=== PATIENT | female | born 1980 | race Caucasian/White ===

== ENCOUNTER 2019-06-12 09:13 | Outpatient (CLI) | payer BC, MEDICAID ==
[~2019-06-12] VITALS: Ht 165 cm; Wt 91.3 kg
[2019-06-12] MEDS ORDERED: PREN1TAB79 PO (10:29)
== END 2019-06-12 10:45 ==
LOC: PREOP 09:13
PROVIDERS: ATTEND Obstetrics & Gynecology
DX: Z01.818 Encounter for other preprocedural examination (principal)

== ENCOUNTER 2019-06-19 06:42 | Inpatient (IN) | payer BC, MEDICAID ==
[2019-06-19] VITALS (11 sets, daily range): BP systolic 94–129; BP diastolic 51–97
[~2019-06-19] VITALS: Ht 165.1 cm; Wt 92.5 kg
[~2019-06-19 06:42] MED LIST: CITRIC ACID/SOB CIT (BICITRA) 30 ML UDC ONE; CLINDAMYCIN 900 MG/50 ML IVPB 50 ML IV ONE; FAMOTIDINE 20MG/2ML IV (PEPCID) ONE; METOCLOPRAMIDE INJ 10 MG/2 ML (REGLAN) ONE; PREN1TAB79 PO
--- OUTSIDE RECORDS SUMMARY | 2019-06-19 06:47 | XMS REPORT ---
Author Author [employer] [facility] [employer] Address [address] [address] Care Team Providers Care Admissions Specialist Name Role Phone IZABELA SUDHAKAR Unavailable Unavailable CUBA MALIN Unavailable Unavailable SUDHAKAR GURROLA Unavailable Unavailable ELENA ESTRADA MD Unavailable Unavailable Uvaldo Franks Unavailable Unavailable Unavailable Unavailable DO Aroldo SHELTON PCP Allergies The data below is from unstructured sources Substance Reaction Event Type N.K.D.A. Info Not Available Non Drug Allergy Medications Medication Ingredient Drug Dose Dates Status Sig Sig Care Class(es) (Normalized) (Original) Provid er no no Active no Vit no information Vit information information W-Ca,Fe,Fa( na me (1 source.) W-Ca,Fe,Fa( Active 1 (no <1 Mg) ORAL Daily phone) Problems Problem Normalized Date of Normalized Normalized Provider Fac ility Classification Problem(s) Problem Problem Problem Sta tus Onset/Resoluti Duration on Nonspecific Chest pain, Episodic Active BELLA BARTHOLOMEW Via chest pain (1 unspecified MD Zhang source.) [facility] ([address]686) Other lower Dyspnea, Episodic Active BELLA BARTHOLOMEW Vi a respiratory unspecified MD Zhang disease (1 Hospital - source.) [place] ([address]) Residual H/O: Episodic Active DO GRACE SHELTON Asce nsion Via codes; section [address] [facility] (1 source.) ([address]23) Procedures The data below is from unstructured sources Procedure Coding System Code Date Office Visit, Est Pt., Level 3 CPT-4 54030 September 17, 2015 Procedure Coding System Code Date Office Visit, Est Pt., Level 3 CPT-4 67916 Jan 09, 2015 Procedure Coding System Code Date Office Visit, New Pt., Level 4 CPT-4 82904 Nov 07, 2014 No procedure information available. Immunizations The data below is from unstructured sourcesNo Immunization Information Available Results Test Name Value Interpretation Reference Range Date Time Fa cility (Normalized) (Normalized) (Medline Reference) No panel information on 2019-05-31 S. agalactiae SEE NOTE (no code) [facility] Ql (Unsp spec) [facility] (50996) No panel information on 2019-04-01 Basophils (Bld) 0.027 10*3/uL (N) 0 - 0.3 10*3/uL [facility] [#/Vol] [facility] (03007) Basophils/100 0.3 % (N) 0.5 - 1 % [facility] He alth WBC (Bld) [facility] (83057) Eosinophils 0.249 10*3/uL (N) 0.05 - 0.5 [facility] alth (Bld) [#/Vol] 10*3/uL [facility] (34121) Eosinophils/100 2.8 % (N) 1 - 4 % [facility] WBC (Bld) [facility] (03551) Erythrocyte 12.8 % (N) 11.6 - 14.6 % [facility] ealth distribution [facility] width (RBC) [facility] [Ratio] (09090) Glucose 1 Hr 105 (N) [facility] post meal [facility] [Mass/Vol] [facility] (88023) Hematocrit (Bld) 32.0 % (L) 36.1 - 50.3 % [facility] [Volume [facility] fraction] [facility] (08358) Hemoglobin (Bld) 10.5 g/dL (L) 12.1 - 17.2 g/dL [facility] [Mass/Vol] [facility] (00962) Lymphocytes 1.931 10*3/uL (N) 0.9 - 2.9 [facility] alth (Bld) [#/Vol] 10*3/uL [facility] (08935) Lymphocytes/100 21.7 % (N) 20 - 40 % [facility] WBC (Bld) [facility] (52573) MCH (RBC) 30.1 pg (N) 27 - 31 pg [facility] th [Entitic mass] [facility] (92583) MCHC (RBC) 32.8 g/dL (N) 32 - 36 g/dL [facility] He alth [Mass/Vol] [facility] (82832) MCV (RBC) 91.7 fL (N) 80 - 100 fL [facility] [Entitic vol] [facility] (41139) Monocytes (Bld) 0.481 10*3/uL (N) 0.3 - 0.9 [facility] [#/Vol] 10*3/uL [facility] (26505) Monocytes/100 5.4 % (N) 2 - 8 % [facility] alth WBC (Bld) [facility] (11195) Neutrophils 6.212 10*3/uL (N) 1.7 - 7 10*3/uL [facility] (Bld) [#/Vol] [facility] (66746) Neutrophils/100 69.8 % (N) 40 - 60 % [facility] WBC (Bld) [facility] (64210) Platelet mean 10.4 fL (N) 7.2 - 11.7 fL [facility] Health volume (Bld) [facility] [Entitic vol] [facility] (62791) Platelets (Bld) 263 10*3/uL (N) 150 - 450 [facility] [#/Vol] 10*3/uL [facility] (44728) RBC (Bld) 3.49 10*6/uL (L) 4.2 - 6.1 [facility] lth [#/Vol] 10*6/uL [facility] (81733) WBC (Bld) 8.9 10*3/uL (N) 3.5 - 10.5 [facility] th [#/Vol] 10*3/uL [facility] (91699) No panel information on 2018-12-17 ABO group Nom O (no code) [facility] Healt h (Bld) [facility] (09014) ABO group Nom O (no code) [facility] Healt h (Bld) [facility] (90690) Basophils (Bld) 0.041 10*3/uL (N) 0 - 0.3 10*3/uL [facility] [#/Vol] [facility] (90329) Basophils/100 0.5 % (N) 0.5 - 1 % [facility] WBC (Bld) [facility] (76353) Eosinophils 0.267 10*3/uL (N) 0.05 - 0.5 [facility] (Bld) [#/Vol] 10*3/uL [facility] (30304) Eosinophils/100 3.3 % (N) 1 - 4 % [facility] WBC (Bld) [facility] (41476) Erythrocyte 18.0 % (H) 11.6 - 14.6 % [facility] H ealth [facility] (RBC) [facility] [Ratio] (53001) HBV surface Ag NON-REACTIVE (N) [facility] IA Ql [facility] (18510) Hematocrit (Bld) 33.7 % (L) 36.1 - 50.3 % [facility] [Volume [facility] (53448) Hemoglobin (Bld) 10.8 g/dL (L) 12.1 - 17.2 g/dL [facility] [Mass/Vol] [facility] (45291) HIV 1+2 Ab+HIV1 NON-REACTIVE (N) [facility] p24 Ag IA Ql [facility] (38995) Lymphocytes 1.944 10*3/uL (N) 0.9 - 2.9 [facility] He alth (Bld) [#/Vol] 10*3/uL [facility] (58071) Lymphocytes/100 24.0 % (N) 20 - 40 % [facility] WBC (Bld) [facility] (47253) MCH (RBC) 27.1 pg (N) 27 - 31 pg [facility] th [Entitic mass] [facility] (15901) MCHC (RBC) 32.0 g/dL (N) 32 - 36 g/dL [facility] He alth [Mass/Vol] [facility] (90445) MCV (RBC) 84.7 fL (N) 80 - 100 fL [facility] Hea lth [Entitic vol] [facility] (90985) Monocytes (Bld) 0.348 10*3/uL (N) 0.3 - 0.9 [facility] [#/Vol] 10*3/uL [facility] (89122) Monocytes/100 4.3 % (N) 2 - 8 % [facility] WBC (Bld) [facility] (85484) Neutrophils 5.5 10*3/uL (N) 1.7 - 7 10*3/uL [facility] (Bld) [#/Vol] [facility] (33098) Neutrophils/100 67.9 % (N) 40 - 60 % [facility] WBC (Bld) [facility] (45836) Platelet mean 9.9 fL (N) 7.2 - 11.7 fL [facility] volume (Bld) [facility] [Entitic vol] [facility] (61227) Platelets (Bld) 348 10*3/uL (N) 150 - 450 [facility] [#/Vol] 10*3/uL [facility] (44381) RBC (Bld) 3.98 10*6/uL (N) 4.2 - 6.1 [facility] lth [#/Vol] 10*6/uL [facility] (78484) Reagin Ab RPR Ql NON-REACTIVE (N) [facility] (S) [facility] (12626) Reagin Ab RPR Ql no information (no code) [facility] Hea lth (S) [facility] (25266) Rh Nom (Bld) no information (no code) [facility] (84794) Rh Nom (Bld) no information (no code) [facility] (64762) Rubella virus 2.69 (N) [facility] IgG Qn (S) [facility] (66934) WBC (Bld) 8.1 10*3/uL (N) 3.5 - 10.5 [facility] [#/Vol] 10*3/uL [facility] (89636) No panel information on 2018-11-23 C. trachomatis NOT DETECTED (N) [facility] rRNA WILLAM+probe [facility] (Unsp spec) [facility] (01328) C. trachomatis NOT DETECTED (N) [facility] rRNA WILLAM+probe [facility] (Unsp spec) [facility] (83586) Clinical no information (N) [facility] information [facility] (48552) COMMENT no information (no code) [facility] (39263) COMMENT no information (no code) [facility] (81733) COMMENT no information (no code) [facility] (86109) Production Team Manager Cyto no information (N) [facility] stain Nom [facility] (Cvx/Vag) [ID] [facility] (13458) Date of previous no information (N) [facility] biopsy [facility] (46718) Date of previous no information (N) [facility] PAP smear [facility] (50428) Last menstrual no information (N) [facility] period start [facility] (04553) Microscopic no information (N) [facility] observation Cyto [facility] Nom (Cvx) [facility] (70259) N. gonorrhoeae NOT DETECTED (N) [facility] rRNA WILLAM+probe [facility] (Unsp spec) [facility] (83042) N. gonorrhoeae NOT DETECTED (N) [facility] rRNA WILLAM+probe [facility] (Unsp spec) [facility] (38178) Specimen source Cervix (N) [facility] Cyto stain Nom [facility] (Cvx/Vag) [facility] (99310) Statement of no information (N) [facility] adequacy Cyto [facility] (Cvx/Vag) [facility] [Interp] (77812) No panel information on 2018-11-14 HCG.beta subunit 268780 m[IU]/mL (N) 5 - 25 [facility]IU[facility] (47841) HCG.beta subunit 397122 m[IU]/mL (N) 5 - 25 m[IU]/mL [facility] (37552) No panel information on 2018-08-13 HCG.beta subunit 3 m[IU]/mL (N) 5 - 25 m[IU]/mL [facility] (83215) No panel information on 2018-08-10 HCG.beta subunit 14 m[IU]/mL (N) 5 - 25 m[IU]/mL [facility] (17473) Vital Signs The data below is from unstructured sources Vital Reading Result Col lection Date/Time Interventions No Information Plan of Treatment No Information Goals Patient Goal Desired Goal no information no information Social History Normalized Code Original Code Date Value Tobacco smoking status Tobacco smoking status no information Ex-smoker (finding) [place]IS no information no information 2019 Denies Use no information no information 2019 No no information no information 2019 Former Smoker Sex Assigned At Sex Assigned At no information F emale Functional Status The data below is from unstructured sourcesNo Functional Status information available Mental Status The data below is from unstructured sourcesNo Mental Status Information Available Encounters Encounter Normalized Encounter Encounter Diagnosis Care Provi michael Organization Date Type 2019 Patient encounter no information (no phone) Yandel escobedo [facility] (no phone) 2019 05-31-2019 Patient encounter no information (no phone) [facility] (no phone) 04-01-2019 Patient encounter no information no name (no phone) no organization name procedure (no phone) 02-11-2019 Patient encounter no information no name (no phone) no organization name procedure (no phone) 01-14-2019 Patient encounter no information no name (no phone) no organization name procedure (no phone) 12-17-2018 Patient encounter no information no name (no phone) no organization name procedure (no phone) 12-17-2018 Patient encounter no information no name (no phone) no organization name procedure (no phone) 11-23-2018 Patient encounter no information no name (no phone) no organization name procedure (no phone) 11-23-2018 Patient encounter no information no name (no phone) no organization name procedure (no phone) 11-14-2018 Patient encounter no information no name (no phone) no organization name procedure (no phone) 11-14-2018 Patient encounter no information no name (no phone) no organization name procedure (no phone) 11-09-2018 Patient encounter no information no name (no phone) no organization name procedure (no phone) 08-13-2018 Patient encounter no information no name (no phone) no organization name procedure (no phone) 08-10-2018 Patient encounter no information no name (no phone) no organization name procedure (no phone) 08-10-2018 Patient encounter no information no name (no phone) no organization name procedure (no phone) 05-18-2015 Patient encounter no information no name (no phone) no organization name - procedure (no phone) 08-15-2015 Medical Equipment The data below is from unstructured sourcesNo Medical Equipment Information available Payers Normalized Payer Value [facility] Shield no information ([id number]) Medicaid no information ([id number]) Evaluation note Note Type Note Facility Evaluation No Assessments Information Available A scension note Via [facility] (43122) Summary Purpose eClinicalWorks SubmissioneClinicalWorks SubmissioneClinicalWorks SubmissioneClinicalWorks SubmissioneClinicalWorks SubmissioneClinicalWorks SubmissioneClinicalWorks SubmissioneClinicalWorks SubmissioneClinicalWorks SubmissioneClinicalWorks SubmissioneClinicalWorks Submission Advance Directives Advance Directive Response Recorded Date/Time Advance Directives No Ap 2019 10:38am Health Care Power of Slot Machine Key Person No 2019 10:38am Resuscitation Status Full Code 2019 10:38am Additional Source Comments This clinical document has been generated using [employer] software that has been certified by the Office of the National Coordinator for Health Information Technology (ONC 15.99.04.3023.Diam.31.00.0.826927) and the National Committee for Mental Health Director (NCQA, as an eMeasure certified technology). FOR RECORDS PERTAINING TO PATIENTS WHO ARE OR HAVE BEEN ENROLLED IN A CHEMICAL D EPENDENCY/SUBSTANCE ABUSE PROGRAM, SOME INFORMATION MAY BE OMITTED. This clinica l summary was aggregated from multiple sources. Caution should be exercised in using it in the provision of clinical care. This summary normalizes information from multiple sources, and as a consequence, information in this document may ma terially change the coding, format and clinical context of patient data. In praveen tion, data may be omitted in some cases. CLINICAL DECISIONS SHOULD BE BASED ON T HE PRIMARY CLINICAL RECORDS. [employer] [facility]. provides no warranty or guara ntee of the accuracy or completeness of information in this document.The followi ng information is based on time limited clinical information
--- OUTSIDE RECORDS SUMMARY | 2019-06-19 06:47 | XMS REPORT ---
Author Author Judy GURROLA [facility] [employer] Address Unknown Phone Unavailable Care Team Providers Care Pre Billing Specialist Name Role Phone SUDHAKAR GURROLA CP Unavailable Allergies No Known Allergies Problems Problem Type Condition Code Onset Dates Condition Statu s Problem Tooth caries 521.00 Active Problem Edema 782.3 Active Problem Tremor, unspecified R25.1 Active Assessment Palpitations R00.2 Active Problem Tension headache, chronic 339.12 Ac tive Problem Arm pain 729.5 Active Medications No Known Medications Procedures Procedure Coding System Code Date ECG MONITOR/RECORD, 24 HRS CPT-4 28621 Jan 272014 Results No Known Results Summary Purpose eClinicalWorks Submission
--- OUTSIDE RECORDS SUMMARY | 2019-06-19 06:47 | XMS REPORT ---
Author Author Judy MALIN Organization [employer] Address Unknown Phone Unavailable Care Team Providers Care Printed Circuit Board Panels Plater Name Role Phone CUBA MALIN CP Unavailable Allergies No Known Allergies Problems Problem Type Condition Code Onset Dates Condition Statu s Problem Tooth caries 521.00 Active Problem Edema 782.3 Active Problem Tremor, unspecified R25.1 Active Problem Tension headache, chronic 339.12 Ac tive Problem Arm pain 729.5 Active Medications Medication Code System Code Instructions Start Date End Date Status Dosage Klor-Con M20 [facility] [address]-26 20 MEQ Orally Twice a day Dec 282014Jan 17, 2015 1 tablet Results No Known Results Summary Purpose eClinicalWorks Submission
--- OUTSIDE RECORDS SUMMARY | 2019-06-19 06:47 | XMS REPORT ---
Author Author Judy GURROLA [facility] eClinicalWorks Address Unknown Phone Unavailable Care Team Providers Care Lock Tender Chief Operator Name Role Phone SUDHAKAR GURROLA CP Unavailable Allergies No Known Allergies Problems Problem Type Condition Code Onset Dates Condition Statu s Problem Tooth caries 521.00 Active Problem Edema 782.3 Active Problem Tremor, unspecified R25.1 Active Assessment Palpitations R00.2 Active Problem Tension headache, chronic 339.12 Ac tive Problem Arm pain 729.5 Active Medications No Known Medications Results No Known Results Summary Purpose eClinicalWorks Submission
--- OUTSIDE RECORDS SUMMARY | 2019-06-19 06:47 | XMS REPORT ---
Author Author Judy GURROLA [facility] eClinicalWorks Address Unknown Phone Unavailable Care Team Providers Care Photographic Editor Name Role Phone SUDHAKAR GURROLA CP Unavailable Allergies No Known Allergies Problems Problem Type Condition Code Onset Dates Condition Statu s Problem Tooth caries 521.00 Active Problem Edema 782.3 Active Problem Tremor, unspecified R25.1 Active Assessment Anxiety F41.9 Active Problem Tension headache, chronic 339.12 Ac tive Problem Arm pain 729.5 Active Medications No Known Medications Results No Known Results Summary Purpose eClinicalWorks Submission
--- OUTSIDE RECORDS SUMMARY | 2019-06-19 06:47 | XMS REPORT ---
Author Author Judy GURROLA [facility] eClinicalWorks Address Unknown Phone Unavailable Care Team Providers Care Strawhat Inspector And Packer Name Role Phone SUDHAKAR GURROLA Unavailable Allergies, Adverse Reactions, Alerts Substance Reaction Event Type Penicillin G Potassium Info Not Available Drug Allergy Levaquin anaphylaxis Drug Allergy Cephalexin rash Drug Allergy Problems Problem Type Condition Code Onset Dates Condition Statu s Assessment Arm pain 729.5 Active Problem Tooth caries 521.00 Active Problem Edema 782.3 Active Problem Tremor, unspecified R25.1 Active Assessment Tremor, unspecified R25.1 Active Assessment Edema 782.3 Active Problem Tension headache, chronic 339.12 Ac tive Problem Arm pain 729.5 Active Medications Medication Code System Code Instructions Start Date End Date Status Dosage Amitriptyline HCl [facility] [address]-61 25 MG Orally bedtime Nov 07 15 1 tablet Hydrochlorothiazide [facility] [address]-91 25 MG Orally Once a day Oct 282014 1 tablet Atenolol [facility] [address]-21 25 MG Orally Once a day Jan 09, 2015 1 tablet Procedures Procedure Coding System Code Date Office Visit, Est Pt., Level 3 CPT-4 95626 N 2014 Vital Signs Date/Time: Jan 09, 2015 Temperature 97.8 F Weight 166 lbs Height 5.5 in BMI 3,857.79 Index Blood Pressure Diastolic 82 mmHg Blood Pressure Systolic 126 mmHg Cardiac Monitoring Heart Rate 88 bpm Results No Known Results Summary Purpose eClinicalWorks Submission
--- OUTSIDE RECORDS SUMMARY | 2019-06-19 06:47 | XMS REPORT ---
Author Judy Washington Organization eClinicalWorks Address Unknown Phone Unavailable Care Team Providers Care Extractor Operator Helper Name Role Phone SUDHAKAR GURROLA CP Unavailable Allergies No Known Allergies Problems Problem Type Condition Code Onset Dates Condition Statu s Problem Tremor, unspecified R25.1 Active Problem Peptic ulcer K27.9 Active Problem Migraine without aura and with status mi grainosus, not intractable G43.001 Active Problem Gastritis and duodenitis K29.90 Act jerald Problem Tension headache G44.209 Active Problem Edema, unspecified type R60.9 Acti ve Problem Dehydration E86.0 Active Problem Acute cystitis without hematuria N30.00 Active Medications Medication Code System Code Instructions Start Date End Date Status Dosage Omeprazole [facility] [address]-83 40 mg Orally Once a day Nov 06, 2015 1 capsule Results No Known Results Summary Purpose eClinicalWorks Submission
--- OUTSIDE RECORDS SUMMARY | 2019-06-19 06:48 | XMS REPORT ---
Author Author Judy GURROLA [facility] eClinicalWorks Address Unknown Phone Unavailable Care Team Providers Care Optician Apprentice Dispensing Name Role Phone SUDHAKAR GURROLA CP Unavailable Allergies No Known Allergies Problems Problem Type Condition Code Onset Dates Condition Statu s Problem Acute cystitis without hematuria N30.00 Active Problem Edema due to kwashiorkor E40 Act jerald Problem Dehydration E86.0 Active Problem Tremor, unspecified R25.1 Active Assessment Weakness R53.1 Active Problem Tension headache G44.209 Active Problem Edema, unspecified type R60.9 Acti ve Medications No Known Medications Procedures Procedure Coding System Code Date Office Visit, Est Pt., Level 3 CPT-4 98266 [facility] 2015 Results No Known Results Summary Purpose eClinicalWorks Submission
--- OUTSIDE RECORDS SUMMARY | 2019-06-19 06:48 | XMS REPORT ---
Author Author Judy GURROLA [facility], [place] eClinicalWorks Address Unknown Phone Unavailable Care Team Providers Care Sheep Herder Name Role Phone SUDHAKAR GURROLA CP Unavailable Allergies, Adverse Reactions, Alerts Substance Reaction Event Type N.K.D.A. Info Not Available Non Drug Allergy Problems Problem Type Condition ICD-9 Code Onset Dates Condition Statu s Problem Tension headache, chronic 339.12 Ac tive Problem Arm pain 729.5 Active Problem Edema 782.3 Active Assessment Arm pain 729.5 Active Assessment Edema 782.3 Active Assessment Tension headache, chronic 339.12 Ac tive Medications Medication Code System Code Instructions Start Date End Date Status Dosage Amitriptyline HCl [facility] [address]-59 25 MG Orally bedtime Nov 07 15 1 tablet Gabapentin [facility] [address]-20 300 MG Orally Three times a day Oct 1 capsule Hydrochlorothiazide [facility] [address]-51 25 MG Orally Once a day Oct 282014 1 tablet Procedures Procedure Coding System Code Date Office Visit, New Pt., Level 4 CPT-4 34289 S ept 2014 Vital Signs Date/Time: Nov 07, 2014 Temperature 98.4 F Weight 166 lbs Height 5.5 in BMI 3,857.79 Index Blood Pressure Diastolic 72 mmHg Blood Pressure Systolic 138 mmHg Cardiac Monitoring Heart Rate 78 bpm Results No Known Results Summary Purpose eClinicalWorks Submission
--- OUTSIDE RECORDS SUMMARY | 2019-06-19 06:48 | XMS REPORT ---
Author Author Judy GURROLA [facility] eClinicalWorks Address Unknown Phone Unavailable Care Team Providers Care Event Crew Technician Name Role Phone SUDHAKAR GURROLA CP Unavailable Allergies No Known Allergies Problems Problem Type Condition Code Onset Dates Condition Statu s Problem Tooth caries 521.00 Active Problem Edema 782.3 Active Problem Tremor, unspecified R25.1 Active Assessment Hypokalemia E87.6 Active Problem Tension headache, chronic 339.12 Ac tive Problem Arm pain 729.5 Active Medications No Known Medications Results No Known Results Summary Purpose eClinicalWorks Submission
--- OUTSIDE RECORDS SUMMARY | 2019-06-19 06:48 | XMS REPORT | Continuity of Care Document ---
Author Organization Unknown Address Unknown Phone Unavailable Allergies Active Description Code Type Severity Reaction Onset Reported/Identified Relationship to Patient Clinical Status Yes cephalexin [id number] Drug Allerg y Mild HIVES/ITCHING 2019 Yes levofloxacin [id number] Drug Allergy Mild HIVES/ITCHING 2019 Yes Penicillins [id number] Drug Aller gy Mild HIVES/ITCHING 2019 Medications There is no data. Problems Date Dx Coded Attending Type Code Diagnosis Diagnosed By 05/21/2015 ELENA ESTRADA MD Ot R00. 2 05/21/2015 ELENA ESTRADA MD Ot R06. 00 05/21/2015 ELENA ESTRADA MD Ot R07. 9 05/21/2015 ELENA ESTRADA MD Ot R60. 9 06/05/2015 ELENA ESTRADA MD Ot R00. 2 06/05/2015 ELENA ESTRADA MD Ot R06. 00 06/05/2015 ELENA ESTRADA MD Ot R07. 9 06/05/2015 ELENA ESTRADA MD Ot R60. 9 06/17/2015 ELENA ESTRADA MD Ot R00. 2 PALPITATIONS 06/17/2015 ELENA ESTRADA MD Ot R06. 00 DYSPNEA, UNSPECIFIED 06/17/2015 ELENA ESTRADA MD Ot R07. 9 CHEST PAIN, UNSPECIFIED 06/17/2015 ELENA ESTRADA MD Ot R60. 9 EDEMA, UNSPECIFIED 08/16/2015 ELENA ESTRADA MD Ot R00. 2 PALPITATIONS 08/16/2015 ELENA ESTRADA MD Ot R06. 00 DYSPNEA, UNSPECIFIED 08/16/2015 ELENA ESTRADA MD Ot R07. 9 CHEST PAIN, UNSPECIFIED 08/16/2015 ELENA ESTRADA MD Ot R60. 9 EDEMA, UNSPECIFIED 01/05/2016 TEZ ABZZI DO Ot A04. 8 OTHER SPECIFIED BACTERIAL INTESTINAL INF 01/05/2016 TEZ BAZZI DO Ot R11. 0 NAUSEA 01/05/2016 TEZ BAZZI DO Ot Z01.818 ENCOUNTER FOR OTHER PREPROCEDURAL EXAMIN 2019 Ot R00.2 PALP ITATIONS 2019 Ot R06.00 DYS PNEA, UNSPECIFIED 2019 Ot R07.9 CHES T PAIN, UNSPECIFIED 2019 Ot R60.9 KAN A, UNSPECIFIED 06/13/2019 THAO JASSO DO Ot Z01.8 18 ENCOUNTER FOR OTHER PREPROCEDURAL EXAMIN Procedures There is no data. Results Test Result Range HCG, QUANTITATIVE - 08/10/18 16:33 HCG, TOTAL, QN 14 mIU/mL NRG HCG, QUANTITATIVE - 08/13/18 17:12 HCG, TOTAL, QN 3 mIU/mL NRG HCG, QUANTITATIVE - 11/14/18 09:44 HCG, TOTAL, QN 071828 mIU/mL NRG GC/CHLAMYDIA (SWAB OR URINE)-RAPID - 11:32 CHLAMYDIA TRACHOMATIS RNA, TMA NOT DETECTED NOT DETECTED NEISSERIA GONORRHOEAE RNA, TMA NOT DETECTED NOT DETECTED COMMENT NRG SUREPATH PAP RFX HPV mRNA E6/E7 - 11:32 CLINICAL INFORMATION: NRG LMP: NRG PREV. PAP: NRG PREV. BX: NRG SOURCE: Cervix NRG STATEMENT OF ADEQUACY: NRG INTERPRETATION/RESULT: NRG SHOE POLISHER: NRG COMMENT NRG HEP B SURFACE ANTIGEN - 12/17/18 09:38 HEPATITIS B SURFACE ANTIGEN NON-REACTIVE NON-REACTIVE RUBELLA IMMUNE STATUS - 12/17/18 09:38 RUBELLA ANTIBODY (IGG) 2.69 index NRG GLUCOSE JOE 1 HOUR - 04/01/19 11:06 GLUCOSE, POSTPRANDIAL/ 1 HOUR 105 mg/dL See Note: CBC - 04/01/19 11:06 WHITE BLOOD CELL COUNT 8.9 Thousand/uL 3 .8-10.8 RED BLOOD CELL COUNT 3.49 Million/uL 3.8 0-5.10 HEMOGLOBIN 10.5 g/dL 11.7-15.5 HEMATOCRIT 32.0 % 35.0-45.0 MCV 91.7 fL 80.0-100.0 MCH 30.1 pg 27.0-33.0 MCHC 32.8 g/dL 32.0-36.0 RDW 12.8 % 11.0-15.0 PLATELET COUNT 263 Thousand/uL 140-400 MPV 10.4 fL 7.5-12.5 ABSOLUTE NEUTROPHILS 6212 cells/uL 1500- 7800 ABSOLUTE LYMPHOCYTES 1931 cells/uL 850-3 900 ABSOLUTE MONOCYTES 481 cells/uL 200-950 ABSOLUTE EOSINOPHILS 249 cells/uL 15-500 ABSOLUTE BASOPHILS 27 cells/uL 0-200 NEUTROPHILS 69.8 % NRG LYMPHOCYTES 21.7 % NRG MONOCYTES 5.4 % NRG EOSINOPHILS 2.8 % NRG BASOPHILS 0.3 % NRG CULTURE, GROUP B STREP (VAGINAL) - 05/30 12:17 STREPTOCOCCUS, GROUP B CULTURE SEE NOTE NRG Encounters ACCT No. Visit Date/Time Discharge Status Pt. Type Provider Facility Loc./Unit Complaint [id number] 04/01/2019 09:30:00 04/01/2019 23:59:5 9 CLS Outpatient CHUCKIE GARNETT [facility] [id number] 05/31/2019 10:00:00 Document Registration [id number] 04/01/2019 09:30:00 Document Registration [id number] 12/17/2018 09:15:00 Document Registration [id number] 11/23/2018 11:32:00 Document Registration [id number] 11/23/2018 10:45:00 Document Registration [id number] 11/14/2018 09:30:00 Document Registration [id number] 08/13/2018 17:00:00 Document Registration [id number] 08/10/2018 16:20:00 Document Registration [id number] 2019 09:13:00 020 10:45:00 DIS Outpatient THAO JASSO DO [facility] PREOP PREVIOUS SECTI ON [id number] 01/04/2016 05:55:00 016 23:59:59 CLS Outpatient TEZ BAZZI DO [facility] PREOP H-PYLORI [id number] 05/20/2015 09:12:00 016 23:59:59 CLS Outpatient ELENA ESTRADA MD [facility] CARD [id number] 05/18/2015 09:07:00 016 23:59:59 CLS Outpatient NATALIE ACEVEDO, ELENA Smith [facility] CARD CHEST PAIN,PALPITATIONS [id number] 06/19/2019 07:30:00 P EN Preadmit ROMERO NEWELL, THAO Alexis P REVIOUS SECTION [id number] 08/17/2015 09:00:00 Document Registration
--- OUTSIDE RECORDS SUMMARY | 2019-06-19 06:48 | XMS REPORT ---
Author Author Judy GURROLA [facility] eClinicalWorks Address Unknown Phone Unavailable Care Team Providers Care Head Of Stock Name Role Phone SUDHAKAR GURROLA Unavailable Allergies No Known Allergies Problems Problem Type Condition Code Onset Dates Condition Statu s Problem Tooth caries 521.00 Active Problem Edema 782.3 Active Problem Tremor, unspecified R25.1 Active Problem Tension headache, chronic 339.12 Ac tive Problem Arm pain 729.5 Active Medications No Known Medications Results No Known Results Summary Purpose eClinicalWorks Submission
--- OUTSIDE RECORDS SUMMARY | 2019-06-19 06:48 | XMS REPORT ---
Author Author Judy GURROLA [facility] eClinicalWorks Address Unknown Phone Unavailable Care Team Providers Care Hydraulic Jack Operator Name Role Phone SUDHAKAR GURROLA Unavailable Allergies No Known Allergies Problems Problem Type Condition Code Onset Dates Condition Statu s Problem Tooth caries 521.00 Active Problem Edema 782.3 Active Problem Tremor, unspecified R25.1 Active Problem Tension headache, chronic 339.12 Ac tive Problem Arm pain 729.5 Active Medications Medication Code System Code Instructions Start Date End Date Status Dosage Potassium Chloride ER [facility] [address]-34 20 MEQ Orally Once a d ay Jan 20, 2015 May 29, 2015 1 capsule Results No Known Results Summary Purpose eClinicalWorks Submission
--- NOTE | 2019-06-19 06:52 | NUR ---
JEREMÍAS HINSON presented to unit via ambulation from ED, accompanied by SO , with c/o PREVIOUS SECTION. JEREMÍAS HINSON weighed, gowned, voided, and to bed. EFHM and TOCO applied, VS taken. JEREMÍAS HINSON oriented to bed controls, call light, TV, heat, and A/C controls.
[2019-06-19] MEDS ORDERED: LACTATED RINGERS 1,000 ML IV PRN ×2 (06:56)
[2019-06-19] MEDS ORDERED: CLINDAMYCIN 900 MG/50 ML IVPB 50 ML IV ONE ×2 (07:00→08:45)
[2019-06-19] MEDS ORDERED: METOCLOPRAMIDE INJ 10 MG/2 ML (REGLAN) IV ONE (07:00)
[2019-06-19] MEDS ORDERED: CATHETER FLUSH 10 ML SYR IV PRN (07:00)
[2019-06-19] MEDS ORDERED: FAMOTIDINE 20MG/2ML IV (PEPCID) IV ONE (07:00)
[2019-06-19] MEDS ORDERED: CITRIC ACID/SOB CIT (BICITRA) 30 ML UDC PO ONE (07:00)
--- NOTE | 2019-06-19 07:05 | NUR ---
#18g IV to Rt.AC per JUICE Arevalo. admission labs collected prior to LR infusing.
[2019-06-19] MEDS ORDERED: BUPIVACAINE 0.5% 30 ML (SENSORCAINE) VIAL ONE (07:14)
[2019-06-19] MEDS ORDERED: OXYTOCIN PRE-MIX DRIP 1,000 ML IV ONE (07:14)
--- NOTE | 2019-06-19 07:14 | NUR ---
Chelsey, [employer] here.
[2019-06-19 07:15] LABS: BASOPHILS % (AUTO) 0 % (0-10); EOSINOPHILS # (AUTO) 0.2 10^3/uL (0.0-0.3); EOSINOPHILS % (AUTO) 2 % (0-10); HEMATOCRIT 32 % (35-52); HEMOGLOBIN 10.7 G/DL (11.5-16.0); LYMPHOCYTES # (AUTO) 1.8 X 10^3 (1.0-4.0); LYMPHOCYTES % (AUTO) 21 % (12-44); MEAN CORPUSCULAR HEMOGLOBIN 30 PG (25-34); MEAN CORPUSCULAR HGB CONC 33 G/DL (32-36); MEAN CORPUSCULAR VOLUME 92 FL (80-99); MEAN PLATELET VOLUME 9.8 FL (7.4-10.4); MONOCYTES # (AUTO) 0.5 X 10^3 (0.0-1.0); MONOCYTES % (AUTO) 6 % (0-12); NEUTROPHILS % (AUTO) 70 % (42-75); PLATELET COUNT 297 10^3/uL (130-400); RED CELL DISTRIBUTION WIDTH 13.2 % (10.0-14.5); WHITE BLOOD COUNT 8.5 10^3/uL (4.3-11.0)
[2019-06-19] MEDS ORDERED: fentaNYL INJECTION 100 MCG/2 ML AMP ONE (07:15)
--- NOTE | 2019-06-19 07:28 | History & Physical-OB/GYN ---
History of Present Illness History of Present Illness Reason for visit/HPI Ms. Guajardo presents to Labor & Delivery at 39 1/7 weeks for a scheduled Repeat Date of Admission Jun 19, 2019 at 06:42 Date Seen by a Provider: Jun 19, 2019 Time Seen by a Provider: 07:00 I consulted on this patient on 06/19/19 07:21 Attending Physician Bruce Dyer DO Admitting Physician Bruce Dyer DO Consult Allergies and Home Medications Allergies Coded Allergies: Penicillins (Verified Allergy, Mild, HIVES/ITCHING, 06/12/19) cephalexin (Verified Allergy, Mild, HIVES/ITCHING, 06/12/19) levofloxacin (Verified Allergy, Mild, HIVES/ITCHING, 06/12/19) Home Medications Vit W-Ca,Fe,FA(<1 mg) 1 Each Tablet, 1 EACH PO DAILY, (Reported) Patient Home Medication List Home Medication List Reviewed: Yes Past Wqoxzqr-Vxbcqk-Nssomu Hx Patient Social History Marrital Status: Number of Children: 6 Number of living children: 6 Alcohol Use: Denies Use Recreational Drug Use: No Smoking Status: Former Smoker Former Smoker, Quit: Jun 11, 2014 Recent Foreign Travel: No Contact w/other who traveled: No Recent Hopitalizations: No Seasonal Allergies Seasonal Allergies: Yes Surgeries Yes Appendectomy, Section Respiratory No Cardiovascular No Neurological No Reproductive System Hx : 8 Hx Para: 6 Hx Total # of Abortions (Spona: 1 Sexually Transmitted Disease: No HIV/AIDS: No Female Reproductive Disorders: Ovarian Cyst Genitourinary Yes Kidney Stones Gastrointestinal Yes (DURING ) Gastroesophageal Reflux Musculoskeletal No Endocrine History of Endocrine Disorders: No HEENT History of HEENT Disorders: Yes (GLASSES ) Loss of Vision: Denies Hearing Impairment: Denies Cancer No Psychosocial History of Psychiatric Problem: No Integumentary History of Skin or Integumenta: No Blood Transfusions History of Blood Disorders: Yes (ANEMIA DURING ) Adverse Reaction to a Blood Tr: No (N/A) Review of Systems Constitutional: see HPI Physical Exam Physical Exam Vital Signs Capillary Refill : Labs Laboratory Tests 06/19/19 06:55: White Blood Count 8.5, Red Blood Count 3.52L, Hemoglobin 10.7L, Hematocrit 32L, Mean Corpuscular Volume 92, Mean Corpuscular Hemoglobin 30, Mean Corpuscular Hemoglobin Concent 33, Red Cell Distribution Width 13.2, Platelet Count 297, Mean Platelet Volume 9.8, Neutrophils (%) (Auto) 70, Lymphocytes (%) (Auto) 21, Monocytes (%) (Auto) 6, Eosinophils (%) (Auto) 2, Basophils (%) (Auto) 0, Neutrophils # (Auto) 6.0, Lymphocytes # (Auto) 1.8, Monocytes # (Auto) 0.5, Eosinophils # (Auto) 0.2, Basophils # (Auto) 0.0 General Appearance: No Apparent Distress, WD/WN Respiratory: Chest Non Tender, Lungs Clear, Normal Breath Sounds Cardiovascular: Regular Rate, Rhythm, No Murmur Abdominal: normal bowel sounds, non tender Labia: WNL Vagina: WNL Cervix: WNL Uterus: WNL, Enlarged (Gravid) Extremity: Normal Inspection, Non Tender, No Calf Tenderness Assessment/Plan Assessment and Plan Intrauterine at 39 1/7 weeks 2. Previous 3. Advanced Maternal Age Plan: Ms. Guajardo is scheduled for a Repeat this morning. The procedure and its associated risks were reviewed. All questions were answered. Admission Diagnosis Admission Status: Inpatient Order (span 2 midnights) Reason for Inpatient Admission: Repeat BRUCE DYER DO Jun 19, 2019 07:28
--- NOTE | 2019-06-19 07:41 | NUR ---
monitors dc'd. pt ambulated to OB c/s room with OR staff @ side. pt stable with no sx's of distress noted. monitor tracing reviewed. FHR 130's. moderate variability present. occasional ctx's noted.
[2019-06-19] MEDS ORDERED: OXYTOCIN PRE-MIX DRIP 500 ML IV SCH (08:55)
[2019-06-19] MEDS ORDERED: fentaNYL INJECTION 100 MCG/2 ML AMP IVP PRN (09:00)
[2019-06-19] MEDS ORDERED: MEASLES,MUMPS,RUBELLA 1 EA INJ SC SCH (09:00)
[2019-06-19] MEDS ORDERED: TETANUS,DIPTH,PERTUSS P/F (BOOSTRIX) 0.5 ML VIAL IM SCH (09:00)
[2019-06-19] MEDS ORDERED: ONDANSETRON 4 MG/2 ML (SDV) Z0FRAN IVP PRN (09:00)
--- NOTE | 2019-06-19 09:05 | Cesarean Section Operative ---
Procedure Procedure Note Pre-operative Diagnosis: Judy Guajardo is a (39 /Para 8 / 6, Gestational Age (wks)39 2/7 with [a history of 6 previous and Advanced Maternal Age] Post-operative Diagnosis: same [] Procedure: [Repeat] low transverse section Physician: THAO JASSO Nonprofit Director: [] Estimated blood loss: [300] mL Disposition: [Good and stable to Recovery Room] Findings: Viable [Male] , Apgars [8, 9], weight [], intact placenta, 3vc, normal appearing uterus, tubes, and ovaries. Indications:Judy Guajardo is a (39 /Para 8 / 6,Gestational Age (wks)39 presenting for [scheduled Repeat ]. Procedure Details: The patient was seen in pre-op and the procedure was discussed with the patient in full, including the risks, benefits, and alternatives. All questions were answered. The patient was taken to the operating room and a time out was performed, verifying patient and procedure. After spinal anesthesia was placed by our anesthesia colleagues, the patient was placed in the dorsal supine with leftward tilt for uterine displacement.~ Her abdomen was then prepped and draped in the typical sterile fashion. A elliptical skin incision was made over her previous skin incision and the old incision was removed,using a scalpel and carried down through the underlying fascia. The fascia was incised in the midline and tented up using Giuliana clamps. On both the inferior and superior fascia side the rectus muscle was dissected off bluntly and sharply using Garza scissors. The peritoneum was identified and entered bluntly in the midline. This was then stretched laterally using manual strength. After entering the abdominal cavity and confirming lack of intraperitoneal adhesions, a large Boone retractor was placed and the lower uterine segment was visualized. A bladder flap was created with the use of Metzenbaum scissors.~ A scalpel was utilized to make a low transverse uterine incision. Amniotomy was performed with an Allis clamp with return of clear fluid. The infant's head was grasped and brought to the level of the incision. Fundal pressure was applied and was delivered without difficulty. Mouth and nares were suctioned with bulb suction. After the umbilical cord was clamped and cut, the was handed off to the pediatric staff where NRP protocol was followed. A sample of cord blood was then obtained. The placenta was delivered intact via uterine massage. The uterus was exter iorized and cleared of all clots and debris. The uterine incision was closed using 0 Vicryl in a running locked fashion. A second imbricated layer was placed using 0 Vicryl in a running fashion as well. The uterus was flexed forward and the posterior rectouterine space was inspected and cleared of all clots and debris. Again the hysterotomy site was examined and hemostasis was observed. The bilateral tubes and ovaries appeared normal. The uterus was placed back into the abdominal cavity and abdominal gutters were cleared of all clots and debris. A final check of the uterine incision showed it to be hemostatic. The peritoneum was closed using 3-0 Vicryl in a running fashion. The fascia was closed with 0 Vicryl in a running fashion. The subcutaneous space was hemostatic, and irrigated. The subcutaneous space was closed with 3-0 Plain Gut in several single interrupted stitches. The skin was then closed using 4-0 Monocryl in a running subcuticular fashion. The skin edges were reapproximated together and were hemostatic. A pressure dressing was applied. All sponge, lap and needle counts were correct at the end of the procedure per nursing. Vitals - Labs Vital Signs - I&O Vital Signs Date Time Temp Pulse Resp B/P (MAP) Pulse Ox O2 Delivery O2 Flow Rate FiO2 06/19/19 07:40 83 18 99/64 (76) Room Air 06/19/19 07:15 37.1 83 18 113/61 (78) 99 Room Air Labs Laboratory Tests 06/19/19 06:55: White Blood Count 8.5, Red Blood Count 3.52L, Hemoglobin 10.7L, Hematocrit 32L, Mean Corpuscular Volume 92, Mean Corpuscular Hemoglobin 30, Mean Corpuscular Hemoglobin Concent 33, Red Cell Distribution Width 13.2, Platelet Count 297, Mean Platelet Volume 9.8, Neutrophils (%) (Auto) 70, Lymphocytes (%) (Auto) 21, Monocytes (%) (Auto) 6, Eosinophils (%) (Auto) 2, Basophils (%) (Auto) 0, Neutrophils # (Auto) 6.0, Lymphocytes # (Auto) 1.8, Monocytes # (Auto) 0.5, Eosinophils # (Auto) 0.2, Basophils # (Auto) 0.0 THAO JASSO DO Jun 19, 2019 09:05
[2019-06-19] MEDS: KETOROLAC 30 MG/ML VIAL IV SCH ×3 (09:55→21:38)
--- NOTE | 2019-06-19 09:55 | NUR ---
FFu/0. lt rubra noted. adina-care offered. v-pad in place.
--- NOTE | 2019-06-19 10:01 | NUR ---
pt transferred to room 308 via bed with this RN @ side. familiarized with room surroundings. call light within reach.
--- NOTE | 2019-06-19 10:41 | NUR ---
report given to JUICE Kwong..
[2019-06-19] MEDS ORDERED: LACTATED RINGERS 1,000 ML IV ONE (11:37)
[2019-06-19] MEDS ORDERED: diphenhydrAMINE 50 MG/ML INJ (BENADRYL) IJ PRN (11:45)
[2019-06-19] MEDS ORDERED: NALOXONE 0.4 MG/ML 1 ML (NARCAN) VIAL IV PRN ×2 (11:45)
[2019-06-19] MEDS ORDERED: fentaNYL INJECTION 100 MCG/2 ML AMP INJ ONE (11:45)
[2019-06-19] MEDS ORDERED: ONDANSETRON 4 MG/2 ML (SDV) Z0FRAN IV PRN (11:45)
[2019-06-19] MEDS ORDERED: METOCLOPRAMIDE INJ 10 MG/2 ML (REGLAN) IV PRN (11:45)
[2019-06-19] MEDS: ACETAMINOPHEN 500 MG TAB (TYLENOL) PO SCH ×2 (12:53→18:41)
[2019-06-19] MEDS ORDERED: fentaNYL INJECTION 100 MCG/2 ML AMP IVP ONE (13:30)
[2019-06-19] MEDS ORDERED: LORazepam INJ 2 MG/ML (ATIVAN) VIAL IVP ONE (13:30)
--- NOTE | 2019-06-19 13:30 | NUR ---
dr oneal called by this rn. pt rating pain 10, sweating, crying. listed medications/interventions given. dr sanz gives orders for fentanyl and ativan.
[2019-06-19] MEDS ORDERED: CATHETER FLUSH 10 ML SYR IV SCH (14:00)
--- NOTE | 2019-06-19 14:25 | NUR ---
dr oneal updated on pt status. pt rating pain 7, states the fent and ativan just "took the edge off". Pt still appears uncomfortable. Addendum: 06/19/19 at 1950 by PRESTON MANN RN orders received for another dose of fentanyl
[2019-06-19] MEDS ORDERED: fentaNYL INJECTION 100 MCG/2 ML AMP IVP NR (14:30)
[2019-06-19] MEDS: METOCLOPRAMIDE 10 MG (REGLAN) TAB PO SCH (14:32)
--- NOTE | 2019-06-19 14:50 | NUR ---
dr oneal updated on pt status. pt rating pain a 6. appears more comfortable. vss. dr oneal she had a drug use history many years ago. orders received rn may give fentanyl 50 Q2h if needed.
--- NOTE | 2019-06-19 20:15 | NUR ---
pt sitting up in bed VSS, plan of care reviewed with pt and s.o.
--- NOTE | 2019-06-19 20:30 | NUR ---
RN called to room, pt stats feeling very saturated, rn noticed urine leaking from around hamm cath, pt requesting it to be removed, hamm cath removed, pt up to void post removal, void noted, pericare discussed and demonstrated, pt ambulated back to bed. Tolerated well.
[2019-06-19] MEDS ORDERED: ZOLPIDEM 5 MG (AMBIEN) TAB PO SCH (21:00)
[2019-06-19] MEDS: DOCUSATE SODIUM 100 MG (COLACE) CAP PO SCH (21:38)
--- NOTE | 2019-06-19 21:40 | NUR ---
Pt requesting HS meds, pt has been up to void again, no bm noted at this time.
--- NOTE | 2019-06-20 | NUR ---
pt resting in room with s.o. at bedside.
[2019-06-20 01:05] VITALS: BP 99/63
--- NOTE | 2019-06-20 01:05 | NUR ---
pt finished at this time, denies needs.
[2019-06-20] MEDS: ACETAMINOPHEN 500 MG TAB (TYLENOL) PO SCH ×3 (01:06→12:16)
[2019-06-20] MEDS: METOCLOPRAMIDE 10 MG (REGLAN) TAB PO SCH ×2 (01:07→06:48)
--- NOTE | 2019-06-20 03:00 | NUR ---
Pt resting in bed with eyes closed.
[2019-06-20 04:45] VITALS: BP 113/61
[2019-06-20] MEDS: KETOROLAC 30 MG/ML VIAL IV SCH (04:52)
[2019-06-20] MEDS ORDERED: BISACODYL 10 MG SUPP (DULCOLAX) PR NR (05:00)
[2019-06-20] MEDS ORDERED: MILK OF MAGNESIA 400 MG/5 ML 30 ML UDC PO NR (05:00)
--- NOTE | 2019-06-20 05:00 | NUR ---
abdominal binder removed per pt's request.
[2019-06-20 05:25] LABS: BASOPHILS % (AUTO) 0 % (0-10); EOSINOPHILS # (AUTO) 0.3 10^3/uL (0.0-0.3); EOSINOPHILS % (AUTO) 3 % (0-10); HEMATOCRIT 29 % (35-52); HEMOGLOBIN 9.5 G/DL (11.5-16.0); LYMPHOCYTES # (AUTO) 1.5 X 10^3 (1.0-4.0); LYMPHOCYTES % (AUTO) 14 % (12-44); MEAN CORPUSCULAR HEMOGLOBIN 30 PG (25-34); MEAN CORPUSCULAR HGB CONC 33 G/DL (32-36); MEAN CORPUSCULAR VOLUME 93 FL (80-99); MEAN PLATELET VOLUME 9.5 FL (7.4-10.4); MONOCYTES # (AUTO) 0.7 X 10^3 (0.0-1.0); MONOCYTES % (AUTO) 6 % (0-12); NEUTROPHILS # (AUTO) 7.7 X 10^3 (1.8-7.8); NEUTROPHILS % (AUTO) 76 % (42-75); PLATELET COUNT 235 10^3/uL (130-400); RED CELL DISTRIBUTION WIDTH 13.4 % (10.0-14.5); WHITE BLOOD COUNT 10.2 10^3/uL (4.3-11.0)
[2019-06-20 08:55] VITALS: BP 124/59
[2019-06-20] MEDS ORDERED: OXYC5TAB96 PO (08:56)
[2019-06-20] MEDS ORDERED: IBUP-1780 PO (08:56)
[2019-06-20] MEDS ORDERED: ACET-93 PO (08:56)
[2019-06-20] MEDS ORDERED: DCS100C PO (08:56)
--- NOTE | 2019-06-20 09:00 | NUR ---
Dr Dyer here to see patient.
--- NOTE | 2019-06-20 09:03 | Discharge Summary ---
Diagnosis/Chief Complaint Date of Admission Jun 19, 2019 at 06:42 Date of Discharge June 20, 2019 Discharge Date: Jun 20, 2019 Discharge Time: 10:00 Admission Diagnosis Admission Diagnosis Intrauterine at 39 1/7 weeks 2. Previous 3. Advanced Maternal Age Discharge Diagnosis Intrauterine at 39 1/7 weeks--delivered 2. Previous 3. Advanced Maternal Age Reason Hospital Visit Ms. Guajardo presents to Labor & Delivery at 39 1/7 weeks for a scheduled Repeat Discharge Summary Hospital Course Was the Problem List Reviewed?: Yes Hospital Course Ms. Guajardo, A1, was admitted for scheduled Repeat at 39 1/7 weeks. The procedure was performed without complications. She was started on IV and oral pain medications and other comfort measures were instituted. Postoperative Day #1 found Ms. Guajardo voiding, tolerating a Regular Diet, moving her bowels, ambulating and controlling her pain with oral medications. Her vital signs remained stable throughout her hospitalization. The remainder of her hospitalization was unremarkable. We will discharge her to home with instructions, prescriptions and a follow up appointment. Labs Laboratory Tests 06/19/19 06:55: Red Blood Count 3.52L, Hemoglobin 10.7L, Hematocrit 32L 06/20/19 05:09: Red Blood Count 3.12L, Hemoglobin 9.5L, Hematocrit 29L, Neutrophils (%) (Auto) 76H Procedures None. Discharge Physical Examination Allergies: Coded Allergies: Penicillins (Verified Allergy, Mild, HIVES/ITCHING, 06/12/19) cephalexin (Verified Allergy, Mild, HIVES/ITCHING, 06/12/19) levofloxacin (Verified Allergy, Mild, HIVES/ITCHING, 06/12/19) Vitals & I&Os Vital Signs Date Time Temp Pulse Resp B/P (MAP) Pulse Ox O2 Delivery O2 Flow Rate FiO2 06/20/19 04:45 36.6 66 16 113/61 (78) Room Air 06/19/19 20:15 98 General Appearance: Alert, Oriented X3, Cooperative HEENT: Atraumatic Respiratory: Clear to Auscultation, Normal Air Movement Cardiovascular: Regular Rate, No Murmurs Abdominal: Normal Bowel Sounds Extremities: No Clubbing, No Cyanosis Skin: No Rashes Neuro: Normal Gait, Normal Speech Psych/Mental Status: Mental Status NL Discharge Home Medications Reviewed and agree with Discharge Medication list on patient's Discharge Instruction sheet Instructions to Patient/Family Please see electronic discharge instructions given to patient. Clinical Quality Measures DVT/VTE Risk/Contraindication: Risk Factor Score Per Nursin RFS Level Per Nursing on Admit: 1=Low/No VTE PPX THAO JASSO DO Jun 20, 2019 09:03
[2019-06-20] MEDS: DOCUSATE SODIUM 100 MG (COLACE) CAP PO SCH (09:22)
--- NOTE | 2019-06-20 12:30 | NUR ---
Gave Rhogam IM in right DG. #[id number] Exp 01/14/21
[2019-06-20 12:47] VITALS: BP 114/48
--- NOTE | 2019-06-20 14:25 | NUR ---
JEREMÍAS HINSON demonstrates understanding of discharge instructions and accurately returns instructions upon questioning. Copy of Post-Discharge Instructions and Medication Discharge Instructions given to . JEREMÍAS HINSON is able to manage continuing needs after discharge. Patients belongings returned to pt. Skin dry and intact; no breakdown noted. [facility]19 at 1425. JEREMÍAS HINSON left floor via wheel chair, accompanied by and women services staff. To personal vehicle. No concerns voiced at this time.
[2019-06-20] MEDS ORDERED: IBUPROFEN 800 MG (MOTRIN) TAB PO SCH (15:00)
--- NOTE | 2019-06-21 08:47 | Anesthesia-Regional Post-Op ---
Regional Patient Condition Mental Status: Alert, Oriented x3 Circulation: Same as Pre-Op Headache: Absent Sensation: Full Recovery Motor Block: Absent Post Op Complications Complications None Follow Up Care/Instructions Patient Instructions None needed. Anesthesia/Patient Condition Patient is doing well, no complaints, stable vital signs, no apparent adverse anesthesia problems. No complications reported per nursing. SHANIKA ROBLES CRNA Jun 21, 2019 08:47
== END 2019-06-20 14:25 | disposition home or self-care (01) | DRG 788 ==
LOC: LDRP 06:42
PROVIDERS: ADMIT Obstetrics & Gynecology; ATTEND Obstetrics & Gynecology
PROC: 10D00Z1 Extraction of Products of Conception, Low, Open Approach (ICD-10-PCS; principal; 2019-06-19 07:49)
DX: O34.211 Maternal care for low transverse scar from previous cesarean delivery (principal); O99.62 Diseases of the digestive system complicating childbirth; K21.9 Gastro-esophageal reflux disease without esophagitis; O99.013 Anemia complicating pregnancy, third trimester; D64.9 Anemia, unspecified; Z87.891 Personal history of nicotine dependence; Z37.0 Single live birth; Z3A.39 39 weeks gestation of pregnancy
CPT/HCPCS: 36415; 83033; 85025; 86850; 86900; 86901; 94664